=== PATIENT | male | born 1940 | race Two or more races ===

== ENCOUNTER → 2020-11-30 | Outpatient (CLI) | payer MEDICARE | END | disposition home or self-care (01) | LOC: CVU 13:31 | PROVIDERS: ATTEND Internal Medicine Cardiovascular Disease | DX: I06.1 Rheumatic aortic insufficiency (principal); I10 Essential (primary) hypertension; I25.83 Coronary atherosclerosis due to lipid rich plaque; I06.8 Other rheumatic aortic valve diseases | CPT/HCPCS: 93306; 93356 ==

== ENCOUNTER 2021-03-29 10:46 | Outpatient (CLI) | payer MEDICARE | END 2021-03-29 23:59 | disposition home or self-care (01) | LOC: CFH 10:46 | PROVIDERS: ATTEND Internal Medicine | DX: J92.9 Pleural plaque without asbestos (principal); J43.9 Emphysema, unspecified; R06.02 Shortness of breath; M48.14 Ankylosing hyperostosis [Forestier], thoracic region; J94.8 Other specified pleural conditions; F17.201 Nicotine dependence, unspecified, in remission | CPT/HCPCS: 71250 ==